=== PATIENT | female | born 1960 | race Caucasian/White ===

== ENCOUNTER 2023-11-06 12:09 | Emergency (ER) | payer OTHER ==
[~2023-11-06] VITALS: Ht 157.5 cm; Wt 104.8 kg
[2023-11-06 12:35] VITALS: BP 121/71; PULSE 79; RESP 17; TEMP 97.8; O2SAT 95
[2023-11-06 14:50] VITALS: BP 121/71; PULSE 79; RESP 17; TEMP 97.8; O2SAT 95
== END 2023-11-06 14:50 | disposition home or self-care (01) ==
LOC: MED 12:09
DX: S09.90XA Unspecified injury of head, initial encounter (principal); Z90.49 Acquired absence of other specified parts of digestive tract; Z79.899 Other long term (current) drug therapy; X58.XXXA Exposure to other specified factors, initial encounter; Y93.89 Activity, other specified; Y92.89 Other specified places as the place of occurrence of the external cause; Y99.8 Other external cause status
CPT/HCPCS: 70450; 99284